=== PATIENT | male | born 1965 | race Caucasian/White ===

== ENCOUNTER 2017-08-20 12:50 | Outpatient (CLI) | payer OTHER ==
--- NOTE | 2017-08-20 14:19 | MRI ---
MRI LEFT KNEE WITHOUT CONTRAST: HISTORY: S86.912D, strain of left knee. COMPARISON: None. FINDINGS: Medial Meniscus: There is moderate degenerative signal within the body and posterior horn medial meniscus without tear . Lateral Meniscus: Mild degenerative signal within the body of the lateral meniscus. No tear. The ACL, PCL, LCL, and MCL are intact. Extensor Mechanism: Quadriceps tendon, patella, and patellar tendon are all intact. Cartilage: There is cartilage delamination along the lateral trochlear groove measuring 4 mm x 8 mm (trans x CC) . There is also a deep cartilage fissure of the medial trochlea. Medial Compartment: Cartilage delamination without displacement. Central weightbearing surface of the medial tibial plat eau measures 6 mm in transverse x 4 mm in AP dimension. Lateral Compartment: Full-thickness cartilage defect posterior weightbearing surface of the lateral femoral condyle measur ing 3 x 6 mm with early subchondral edema. Margins are relatively sharp. Soft Tissues: Large joint effusion. Mild pretibial soft tissue edema. No significant popliteal cyst. Muscles: Muscle signal and bulk is normal. IMPRESSION: 1. Mild degenerative signal within the body and posterior horn medial meniscus without a displaced t ear. 2. Focal full-thickness cartilage defect of the posterior weightbearing surface of the lateral femor al condyle with early subchondral changes. 3. 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 POS: [facility]
== END 2017-08-20 12:51 | disposition home or self-care (01) ==
LOC: TBSIIMAG 12:50
PROVIDERS: ATTEND Family Medicine
DX: S86.912D Strain of unspecified muscle(s) and tendon(s) at lower leg level, left leg, subsequent encounter (principal)